=== PATIENT | male | born 1955 | race Caucasian/White ===

== ENCOUNTER 2020-07-06 14:59 | Emergency (ER) | payer BC ==
[~2020-07-06] VITALS: Ht 185.4 cm; Wt 77.1 kg
[2020-07-06] MEDS ORDERED: CELLCEPT250 MG (15:22)
[2020-07-06] MEDS ORDERED: ENVARSUS XR1 MG (15:22)
== END 2020-07-06 19:21 | disposition home or self-care (01) ==
LOC: ER 14:59
DX: H53.2 Diplopia (principal); R42 Dizziness and giddiness